=== PATIENT | female | born 1965 | race Caucasian/White ===

== ENCOUNTER 2017-10-04 14:14 | Emergency (ER) | payer OTHER ==
[~2017-10-04] VITALS: Ht 177.8 cm; Wt 59.9 kg
[~2017-10-04 14:14] MED LIST: ASPIR 8181 MG PO; ATENOLOL 25 MG25 M1 PO; PRILOSEC 20 MG20 MG PO
[2017-10-04] MEDS ORDERED: KEFLEX500 M1 PO (14:34)
[2017-10-04 14:58] VITALS: BP 155/82
== END 2017-10-04 15:00 | disposition home or self-care (01) ==
LOC: M.ERS 14:14
DX: S61.211A Laceration without foreign body of left index finger without damage to nail, initial encounter (principal); F17.210 Nicotine dependence, cigarettes, uncomplicated; Z91.041 Radiographic dye allergy status; W26.0XXA Contact with knife, initial encounter; Y93.89 Activity, other specified; Y92.89 Other specified places as the place of occurrence of the external cause; Y99.8 Other external cause status

== ENCOUNTER 2019-08-25 15:12 | Emergency (ER) | payer OTHER ==
[~2019-08-25] VITALS: Ht 177.8 cm; Wt 63.5 kg
[~2019-08-25 15:12] MED LIST changes: +KEFLEX500 M1 PO
[2019-08-25] MEDS ORDERED: IBUPROFEN 800800 M1 PO (15:52)
[2019-08-25] MEDS ORDERED: HYDROCODON-ACE1 EAC7 PO (15:52)
[2019-08-25 16:20] VITALS: BP 142/67
== END 2019-08-25 16:21 | disposition home or self-care (01) ==
LOC: M.ERS 15:12
DX: S90.32XA Contusion of left foot, initial encounter (principal); F17.210 Nicotine dependence, cigarettes, uncomplicated; Z98.51 Tubal ligation status; Z96.641 Presence of right artificial hip joint; Z88.8 Allergy status to other drugs, medicaments and biological substances; W22.8XXA Striking against or struck by other objects, initial encounter; Y93.89 Activity, other specified; Y92.89 Other specified places as the place of occurrence of the external cause; Y99.8 Other external cause status

== ENCOUNTER 2019-11-05 11:15 | Emergency (ER) | payer OTHER ==
[~2019-11-05] VITALS: Ht 177.8 cm; Wt 72.6 kg
[~2019-11-05 11:15] MED LIST changes: +HYDROCODON-ACE1 EAC7 PO; +IBUPROFEN 800800 M1 PO
[2019-11-05] MEDS ORDERED: OMEPRAZOLE 20 M20 M1 PO (11:32)
[2019-11-05 11:44] LABS: ABSOLUTE BASOPHILS 0.1 thou/uL (0.0-0.2); ABSOLUTE EOSINOPHILS 0.1 thou/uL (0.0-0.7); ABSOLUTE LYMPHOCYTES 1.3 thou/uL (0.8-5.3); ABSOLUTE MONOCYTES 0.3 thou/uL (0.0-1.2); ABSOLUTE NEUTROPHILS 3.3 thou/uL (1.6-8.1); BASOPHILS 1.1 %; EOSINOPHILS 1.7 %; HEMOGLOBIN 14.3 gm/dL (12.0-15.0); LYMPHOCYTES 26.2 %; MCH 31.6 pg (26.0-34.0); MCV 90.4 fL (80.0-100.0); MONOCYTES 6.3 %; NUCLEATED RBCS 0 /100WBC; PLATELET COUNT* 182 thou/uL (150-400); POLYS 64.7 %; RBC 4.53 mil/uL (4.20-5.00); RDW-CV 13.2 % (10.5-14.5); WBC 5.1 thou/uL (4.0-11.0)
[2019-11-05 11:57] LABS: APTT 22.6 Seconds (25.0-31.3); CALCIUM 9.2 mg/dL (8.5-10.1); CREATININE 0.9 mg/dL (0.6-1.3); PROTIME 10.1 Seconds (9.20-11.50)
[2019-11-05 12:04] LABS: ALBUMIN 4.1 g/dL (3.4-5.0); TOTAL BILIRUBIN 0.3 mg/dL (<0.1-1.0); TOTAL PROTEIN 7.6 g/dL (6.4-8.2)
[2019-11-05 15:41] VITALS: BP 138/71
--- NOTE | 2019-11-05 16:05 | EKG ---
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
== END 2019-11-05 15:43 | disposition home or self-care (01) ==
LOC: M.ERS 11:15
PROVIDERS: Personal Emergency Response Attendant
DX: R07.89 Other chest pain (principal); F17.210 Nicotine dependence, cigarettes, uncomplicated; Z91.041 Radiographic dye allergy status; Z98.51 Tubal ligation status; Z96.641 Presence of right artificial hip joint

== ENCOUNTER 2020-11-07 16:30 | Emergency (ER) | payer OTHER ==
[~2020-11-07] VITALS: Ht 180.3 cm; Wt 70.3 kg
[~2020-11-07 16:30] MED LIST changes: +OMEPRAZOLE 20 M20 M1 PO
[2020-11-07] MEDS ORDERED: AUGMENTIN 875-1 EACH PO (16:46)
[2020-11-07] MEDS ORDERED: ONDANSETRON HCL4 M2 PO (17:47)
[2020-11-07] MEDS ORDERED: BUTALB-APAP-CA1 EACH PO (17:47)
[2020-11-07 17:55] VITALS: BP 165/78
== END 2020-11-07 17:55 | disposition home or self-care (01) ==
LOC: M.ERS 16:30
DX: R51.9 Headache, unspecified (principal); Z20.822 Contact with and (suspected) exposure to COVID-19; M54.2 Cervicalgia; R61 Generalized hyperhidrosis; F17.210 Nicotine dependence, cigarettes, uncomplicated; Z98.51 Tubal ligation status; Z88.8 Allergy status to other drugs, medicaments and biological substances

== ENCOUNTER 2020-12-20 13:34 | Emergency (ER) | payer OTHER ==
[~2020-12-20] VITALS: Ht 180.3 cm; Wt 72.6 kg
[~2020-12-20 13:34] MED LIST changes: +AUGMENTIN 875-1 EACH PO; +BUTALB-APAP-CA1 EACH PO; +ONDANSETRON HCL4 M2 PO
[2020-12-20] MEDS ORDERED: OMEPRAZOLE 20 M20 M1 PO (13:47)
[2020-12-20] MEDS ORDERED: IBUPROFEN 800800 M1 PO (14:33)
[2020-12-20 14:54] VITALS: BP 145/75
== END 2020-12-20 14:54 | disposition home or self-care (01) ==
LOC: M.ERS 13:34
DX: S63.501A Unspecified sprain of right wrist, initial encounter (principal); F17.210 Nicotine dependence, cigarettes, uncomplicated; Z96.641 Presence of right artificial hip joint; Z98.51 Tubal ligation status; Z79.899 Other long term (current) drug therapy; Z91.041 Radiographic dye allergy status; W01.0XXA Fall on same level from slipping, tripping and stumbling without subsequent striking against object, initial encounter; Y93.89 Activity, other specified; Y92.89 Other specified places as the place of occurrence of the external cause; Y99.8 Other external cause status

== ENCOUNTER 2021-02-01 04:19 | Emergency (ER) | payer OTHER ==
[~2021-02-01] VITALS: Ht 177.8 cm; Wt 68.0 kg
[2021-02-01 04:59] LABS: ABSOLUTE BASOPHILS 0.1 thou/uL (0.0-0.2); ABSOLUTE EOSINOPHILS 0.1 thou/uL (0.0-0.7); ABSOLUTE LYMPHOCYTES 1.9 thou/uL (0.8-5.3); ABSOLUTE MONOCYTES 0.4 thou/uL (0.0-1.2); ABSOLUTE NEUTROPHILS 2.4 thou/uL (1.6-8.1); BASOPHILS 1.2 %; EOSINOPHILS 1.8 %; HEMATOCRIT 40.9 % (37.0-47.0); HEMOGLOBIN 13.9 gm/dL (12.0-15.0); MCH 30.5 pg (26.0-34.0); MCHC 34.1 g/dL (28.0-37.0); MCV 89.6 fL (80.0-100.0); MONOCYTES 7.4 %; MPV 8.6 fl. (7.2-11.1); NUCLEATED RBCS 0 /100WBC; PLATELET COUNT* 198 thou/uL (150-400); POLYS 50.6 %; RBC 4.56 mil/uL (4.20-5.00); RDW-CV 12.7 % (10.5-14.5); WBC 4.8 thou/uL (4.0-11.0)
[2021-02-01 05:02] LABS: CALCIUM 9.2 mg/dL (8.5-10.1); CREATININE 0.8 mg/dL (0.6-1.3); POTASSIUM 3.6 mmol/L (3.5-5.1)
[2021-02-01 05:07] LABS: ALBUMIN 3.8 g/dL (3.4-5.0); TOTAL BILIRUBIN 0.3 mg/dL (<0.1-1.0); TOTAL PROTEIN 7.1 g/dL (6.4-8.2)
[2021-02-01] MEDS ORDERED: OMEPRAZOLE40 MG PO (05:44)
[2021-02-01] MEDS ORDERED: CARAFATE 1 GM TA1 G1 PO (05:44)
[2021-02-01 06:00] VITALS: BP 146/68
--- NOTE | 2021-02-01 08:41 | EKG ---
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[employer]: : 1965 Requested By: Mary Vasquez Order Number: [id number] MD: Baldev Santos Measurements Intervals [place] Rate: 75 P: [place]: QRS: 62 QRSD: 113 T: 81 QT: 413 QTc: 462 Interpretive Statements sinus rhythm with short pr interval artifact noted Borderline intraventricular conduction delay Compared to ECG 11/05/2019 11:21:46 no change Electronically Signed On 02-01-2021 8:41:08 CDT by Baldev Santos [email or web address] <ELECTRONICALLY SIGNED> By: Baldev Santos MD, FACC 02/01/21 0841 0423 0423 Baldev Santos MD, [facility] /EPI
== END 2021-02-01 06:00 | disposition home or self-care (01) ==
LOC: M.ERS 04:19
PROVIDERS: Personal Emergency Response Attendant
DX: K21.9 Gastro-esophageal reflux disease without esophagitis (principal); F17.210 Nicotine dependence, cigarettes, uncomplicated; Z98.51 Tubal ligation status; Z91.02 Food additives allergy status